=== PATIENT | female | born 1980 | race Caucasian/White ===

== ENCOUNTER 2022-11-12 05:51 | Day surgery (SDC) | payer BC ==
[2022-11-10 10:09] LABS: Hemoglobin 13.1 g/dL (12.0-15.5); Mean Corpuscular HGB CONC 32.8 g/dL (32.0-36.0); Mean Corpuscular Volume 91.7 fl (81.6-98.3); Mean Platelet Volume 12.4 fl (7.4-10.4); Platelet Count 212 10x3/uL (150-450); RBC Distribution Width 14.1 % (11.5-14.5); Red Blood Cell (RBC) Count 4.36 10x6/uL (3.90-5.03); White Blood Cell (WBC) Count 4.1 10x3/uL (3.5-10.5)
[2022-11-10 10:20] LABS: BHCG - Serum Negative (NEGATIVE); Pregs Control Background? CLEAR/WHITE (CLR/WHITE); Pregs Control Bar Appear? YES (CONTROL BAR)
[2022-11-11 10:25] VITALS: BMI 36.0
[2022-11-12] MEDS ORDERED: EPINEPHrine 1 MG/ML AMP ONE (06:37)
[2022-11-12] MEDS ORDERED: Bupivacaine PF 0.5% 30 ML VIAL ONE (06:37)
[2022-11-12] MEDS ORDERED: Gabapentin 300 MG CAP ONE (06:40)
[2022-11-12] MEDS ORDERED: CeleCOXIB 100 MG CAP ONE (06:41)
[2022-11-12] MEDS ORDERED: Famotidine/PF 20 mg/2ml Vial ONE (06:41)
[2022-11-12] MEDS ORDERED: HYDROmorphone 0.5 MG/0.5 ML SYRINGE ONE (07:04)
[2022-11-12] MEDS ORDERED: SUGAMMADEX SODIUM 200 MG/2 ML VIAL ONE (07:04)
[2022-11-12] MEDS ORDERED: Propofol 1,000 MG/100 ML VIAL IV ONE (07:04)
[2022-11-12] MEDS ORDERED: Ondansetron PF 4 MG/2 ML Vial ONE (07:06)
[2022-11-12] MEDS ORDERED: Rocuronium Bromide 10 MG/ML (10ML VIAL) ONE (07:06)
[2022-11-12] MEDS ORDERED: Dexamethasone 4 mg/ml Vial ONE (07:06)
[2022-11-12] MEDS ORDERED: Lidocaine 1% PF 5 ML VIAL ONE ×2 (07:06→10:22)
[2022-11-12] MEDS ORDERED: Esmolol 100 MG/10 ML VIAL ONE ×2 (07:07→10:23)
[2022-11-12] MEDS ORDERED: CEFAZOLIN 2 GM VIAL ONE (07:28)
[2022-11-12] MEDS ORDERED: Midazolam HCl 2 mg/2 ml Vial ONE (07:29)
[2022-11-12] MEDS ORDERED: Ketorolac Tromethamine 30 MG/ML VIAL ONE (09:34)
[2022-11-12] MEDS ORDERED: Fentanyl 100 MCG/2 ML VIAL ONE (10:09)
== END 2022-11-12 12:20 | disposition home or self-care (01) ==
LOC: CSHSDC 05:51
PROVIDERS: ATTEND Surgery
PROC: 0DTJ4ZZ Resection of Appendix, Percutaneous Endoscopic Approach (ICD-10-PCS; principal; 2022-11-12)
PROC: 0UT94ZZ Resection of Uterus, Percutaneous Endoscopic Approach (ICD-10-PCS; principal; 2022-11-12)
PROC: 0UB74ZZ Excision of Bilateral Fallopian Tubes, Percutaneous Endoscopic Approach (ICD-10-PCS; principal; 2022-11-12)
DX: N80.30 Endometriosis of pelvic peritoneum, unspecified (principal); K38.9 Disease of appendix, unspecified; N80.03 Adenomyosis of the uterus; N73.6 Female pelvic peritoneal adhesions (postinfective); N83.202 Unspecified ovarian cyst, left side; N92.0 Excessive and frequent menstruation with regular cycle; F17.210 Nicotine dependence, cigarettes, uncomplicated
CPT/HCPCS: 36415; 84703; 85027; 86850; 86900; 86901; 88304; 88307; A4649; C1776; J0171; J1100; J1170; J1885; J2250; J2405; J2704; J3010; S0020; S0028